=== PATIENT | female | born 1990 | race Caucasian/White ===

== ENCOUNTER 2021-12-07 20:36 | Emergency (ER) | payer OTHER ==
[~2021-12-07 20:36] MED LIST: CLEOCIN HCL150 MG PO; COLACE 100MG C100 MG PO; K-DUR TAB 20 M20 MEQ PO
[2021-12-07 21:30] LABS: HEMOGLOBIN 13.9 gm/dl (12.3-15.3); RED BLOOD COUNT 4.31 M/UL (4.00-5.10); WHITE BLOOD COUNT 8.3 K/UL (4.5-11.0)
[2021-12-07 21:56] LABS: BUN/CREATININE RATIO 25 (0-10)
[2021-12-07] MEDS ORDERED: PREDNISONE 20 M20 MG PO (23:26)
== END 2021-12-07 23:37 | disposition home or self-care (01) ==
LOC: ER1 20:36
PROVIDERS: Student in an Organized Health Care Education/Training Program
DX: L30.9 Dermatitis, unspecified (principal)
CPT/HCPCS: 36600; 71045; 80048; 82550; 82553; 82803; 84484; 84703; 85025; 85379; 99283